=== PATIENT | male | born 1995 | race Caucasian/White ===

== ENCOUNTER 2023-02-09 16:35 | Inpatient (IN) | payer OTHER ==
[2023-02-09] MEDS ORDERED: ACETAMINOPHEN 1000 MG/100 ML BAG IVPB ONE (17:45)
[2023-02-09] MEDS ORDERED: ACETAMINOPHEN INJECTION 100 ML IVPB ONE (17:52)
[2023-02-09] MEDS ORDERED: VANCOMYCIN 1 GM in D5W (PRE-DOCKED) 1,000 MG/250 ML (RESTRICTED TO ID ONLY IVPB ONE (18:00)
[2023-02-09] MEDS ORDERED: VANCOMYCIN/WATER FOR INJ (PEG) 1,000 MG/200 ML BAG IVPB ONE (18:00)
[2023-02-09] MEDS ORDERED: PIPERACILLIN/TAZOB 4.5 GM 4.5 GM in DEXTROSE 5%-WATER 100 ML IVPB ONE (18:00)
[2023-02-09] MEDS ORDERED: PIPERACILLIN/TAZOB 4.5 GM 4.5 GM/100 ML BAG IVPB ONE (18:00)
[2023-02-09 18:01] LABS: BASO % 1.1 % (0-2.0); EOS % 1.6 % (0-4.5); HEMATOCRIT 41.6 % (35.4-49); HEMOGLOBIN 14.1 GM/dL (11.7-16.9); LYMPH % 33.7 % (8-40); MCHC 33.9 g/dl (32.0-35.9); MEAN CELL VOLUME 85.7 fl (80-96); MEAN PLT VOLUME 8.5 fl (7.5-11.1); MONO % 5.9 % (3.8-10.2); NEUT % 57.7 % (42.8-82.8); PLATELET COUNT 299 10^3/uL (134-434); RBC 4.85 M/mm3 (4.00-5.60); RDW 13.2 % (11.9-15.9); WHITE BLOOD COUNT 8.3 K/mm3 (4.0-10.0)
[2023-02-09 18:08] LABS: INR 1.05 (0.83-1.09); PROTHROMBIN TIME (PATIENT) 12.2 SEC (9.7-13.0)
[2023-02-09 18:11] LABS: ACTIVATED PTT 33.3 SECONDS (25.2-36.5)
[2023-02-09 18:27] LABS: POTASSIUM 4.2 mmol/L (3.5-5.1)
[2023-02-09 18:30] LABS: CALCIUM 9.1 mg/dL (8.5-10.1)
[2023-02-09 18:31] LABS: ALBUMIN 4.3 g/dl (3.4-5.0); BLOOD UREA NITROGEN 12.4 mg/dL (7-18)
[2023-02-09 18:34] LABS: CREATININE 0.9 mg/dL (0.55-1.3)
[2023-02-09 18:35] LABS: BILIRUBIN,TOTAL 0.8 mg/dL (0.2-1); TOT PROT 7.7 g/dl (6.4-8.2)
[2023-02-10] MEDS ORDERED: PIPERACILLIN/TAZOB 3.375 GM 3.375 GM/50 ML BAG IVPB ONE (02:09)
[2023-02-10] MEDS: PIPERACILLIN/TAZOB 3.375 GM 3.375 GM in DEXTROSE 5%-WATER - 50 ML IVPB SCH ×4 (02:15→19:41)
[2023-02-10 06:30] LABS: BASO % 0.9 % (0-2.0); EOS % 3.3 % (0-4.5); HEMOGLOBIN 13.2 GM/dL (11.7-16.9); LYMPH % 46.6 % (8-40); MCH 28.9 pg (25.7-33.7); MEAN CELL VOLUME 87.6 fl (80-96); MEAN PLT VOLUME 8.9 fl (7.5-11.1); MONO % 5.7 % (3.8-10.2); NEUT % 43.5 % (42.8-82.8); PLATELET COUNT 278 10^3/uL (134-434); RBC 4.57 M/mm3 (4.00-5.60); RDW 13.5 % (11.9-15.9); WHITE BLOOD COUNT 7.3 K/mm3 (4.0-10.0)
[2023-02-10] MEDS ORDERED: VANCOMYCIN/WATER 1250 MG 1,250 MG/250 ML BAG IVPB ONE (06:35)
[2023-02-10 06:42] LABS: POTASSIUM 4.1 mmol/L (3.5-5.1)
[2023-02-10 06:44] LABS: ALBUMIN 3.8 g/dl (3.4-5.0); BLOOD UREA NITROGEN 10.7 mg/dL (7-18); CALCIUM 8.7 mg/dL (8.5-10.1); MAGNESIUM 2.1 mg/dL (1.8-2.4)
[2023-02-10 06:47] LABS: CREATININE 0.8 mg/dL (0.55-1.3)
[2023-02-10 06:49] LABS: BILIRUBIN,TOTAL 0.5 mg/dL (0.2-1); TOT PROT 6.8 g/dl (6.4-8.2)
[2023-02-10] MEDS ORDERED: VANCOMYCIN/WATER 1,250 MG/250 ML BAG (RESTRICTED TO ID ONLY) IVPB SCH ×2 (07:00→10:00)
[2023-02-10 09:18] VITALS: BMI 27.9
[2023-02-10] MEDS: ENOXAPARIN NA (PORCINE) 40 MG/0.4 ML DISP.SYRIN SQ SCH (11:06)
[2023-02-10] MEDS ORDERED: PIPERACILLIN/TAZOBACTAM 3.375 GM VIAL IVPB ONE (17:09)
[2023-02-10] MEDS: ACETAMINOPHEN 325 MG TABLET (FP) PO PRN (17:15)
[2023-02-10] MEDS: DOXYCYCLINE HYCLATE 100 MG CAPSULE PO SCH (17:17)
[2023-02-10] MEDS ORDERED: PIPERACILLIN/TAZOB 3.375 GM 3.375 GM in DEXTROSE 5%-WATER - 50 ML IVPB SCH (18:00)
[2023-02-11] MEDS: PIPERACILLIN/TAZOB 3.375 GM 3.375 GM in DEXTROSE 5%-WATER - 50 ML IVPB SCH ×3 (03:12→17:13)
[2023-02-11 08:49] LABS: BASO % 0.9 % (0-2.0); EOS % 2.2 % (0-4.5); HEMOGLOBIN 13.9 GM/dL (11.7-16.9); LYMPH % 41.5 % (8-40); MCH 29.4 pg (25.7-33.7); MCHC 33.8 g/dl (32.0-35.9); MEAN CELL VOLUME 86.7 fl (80-96); MONO % 6.2 % (3.8-10.2); NEUT % 49.2 % (42.8-82.8); PLATELET COUNT 284 10^3/uL (134-434); RBC 4.72 M/mm3 (4.00-5.60)
[2023-02-11] MEDS: DOXYCYCLINE HYCLATE 100 MG CAPSULE PO SCH ×2 (09:33→17:12)
[2023-02-11] MEDS: ENOXAPARIN NA (PORCINE) 40 MG/0.4 ML DISP.SYRIN SQ SCH (09:34)
[2023-02-11] MEDS: ACETAMINOPHEN 325 MG TABLET (FP) PO PRN ×2 (11:15→23:56)
[2023-02-12 02:02] VITALS: RESP 20
[2023-02-12] MEDS: PIPERACILLIN/TAZOB 3.375 GM 3.375 GM in DEXTROSE 5%-WATER - 50 ML IVPB SCH ×2 (02:04→09:21)
[2023-02-12] MEDS: ENOXAPARIN NA (PORCINE) 40 MG/0.4 ML DISP.SYRIN SQ SCH (09:21)
[2023-02-12] MEDS: DOXYCYCLINE HYCLATE 100 MG CAPSULE PO SCH (09:22)
[2023-02-12 10:53] VITALS: BP 110/72; PULSE 62; TEMP 98.1
== END 2023-02-12 13:57 | disposition home or self-care (01) | DRG 383 ==
LOC: JER 16:35 → JERBED 20:09 → J5S 02-10 09:46 → OBSVTOIN 02-11 14:54
PROVIDERS: ADMIT Internal Medicine
DX: L02.31 Cutaneous abscess of buttock (principal); K61.0 Anal abscess; L03.317 Cellulitis of buttock; F12.90 Cannabis use, unspecified, uncomplicated; F17.210 Nicotine dependence, cigarettes, uncomplicated
CPT/HCPCS: 0241U-QW; 36415; 74177-TC; 80053; 83735; 84100; 85025; 85610; 85730; 86850; 86900; 86901; 87070; 87186; 87205; 99285-25; G0378; Q9967